=== PATIENT | male | born 1990 | race Two or more races ===

== ENCOUNTER 2016-09-26 20:12 | Emergency (ER) | payer SELFPAY ==
[2016-09-26 20:20] VITALS: BP 138/100; PULSE 95; TEMP 98.3; BMI 25.0
[2016-09-26] MEDS ORDERED: DIPHTH,PERTUSS(ACELL),TET 0.5 ML DISP.SYRIN IM ONE (21:19)
--- NOTE | 2016-09-26 21:24 | PDOC ---
History of Present Illness - General Chief Complaint: Injury Stated Complaint: HEAD LACERATION Time Seen by Provider: 09/26/16 20:56 History Source: Patient Exam Limitations: No Limitations - History of Present Illness Initial Comments: 09/26/16 21:19 26 yr male with lac to scalp after a piece of wall tile fell off wall and hit his head approxiamtely 3ft above his head. no LOC. no dizzyness or vomiting. Occurred: reports: just prior to arrival Severity: reports: mild Pain Location: reports: head Method of Injury: Yes: direct blow Loss of Consciousness: no loss of consciousness Associated Symptoms (Fall): denies symptoms Past History - Past Medical History Allergies/Adverse Reactions: Allergies Allergy/AdvReac Type Severity Reaction Status Date / Time No Known Allergies Allergy Verified 09/26/16 20:17 Home Medications: Ambulatory Orders NK [No Known Home Medication] 09/26/16 Other medical history: denies - Immunization History Immunization Up to Date: Yes - Psycho/Social/Smoking Cessation Hx Suicidal Ideation: No Smoking History: Never smoked Number of Cigarettes Smoked Daily: 20 Information on smoking cessation initiated: No Hx Alcohol Use: No Drug/Substance Use Hx: No Substance Use Type: None *Physical Exam - Vital Signs Last Vital Signs Temp Pulse Resp BP Pulse Ox 98.3 F 95 H 18 138/100 99 09/26/16 20:17 09/26/16 20:17 09/26/16 20:17 09/26/16 20:17 09/26/16 20:17 - Physical Exam General Appearance: Yes: Nourished, Appropriately Dressed HEENT: positive: EOMI, NATASHA Neck: positive: Supple. negative: Tender Respiratory/Chest: positive: Lungs Clear, Normal Breath Sounds Cardiovascular: positive: Regular Rhythm, Regular Rate Musculoskeletal: positive: Normal Inspection Extremity: positive: Normal Capillary Refill, Normal Inspection, Normal Range of Motion Integumentary: positive: Normal Color, Dry, Warm, Other (right side scalp parietal with 0.5cm superficial lac, no active bleeding ) Neurologic: positive: Fully Oriented, Alert, Normal Mood/Affect, Normal Response , Motor Strength 5/5 Procedures - Laceration/Wound Repair Right Head Wound Length: to 2.5 cm Wound Explored: clean Wound's Depth, Shape: superficial Irrigated w/ Saline: Yes Betadine Prep: Yes Wound Repaired With: Dermabond Medical Decision Making - Medical Decision Making 09/26/16 21:22 cc: scalp laceration to the top of head no loc no bleeding now will update tetanus wound cleaned with betadine and dermabond glue placed dc inst given to the pt who understands the follow up plan *DC/Admit/Observation/Transfer Diagnosis at time of Disposition: Laceration of scalp Qualifiers: Encounter type: initial encounter Qualified Code(s): S01.01XA - Laceration without foreign body of scalp, initial encounter - Discharge Dispostion Disposition: HOME Condition at time of disposition: Good - Patient Instructions Printed Discharge Instructions: DI for Closed Head Injury Additional Instructions: take tylenol as needed at home 650mg every 4-6hrs for headache or pain avoid any alcohol for the next 48hrs do not get the wound wet for 24hrs then you can briefly get wet in the shower any severe headache, vomiting or other concerns return to the ER
== END 2016-09-26 21:28 | disposition home or self-care (01) ==
LOC: JERFT 20:12
PROC: 3E0234Z Introduction of Serum, Toxoid and Vaccine into Muscle, Percutaneous Approach (ICD-10-PCS; principal; 2016-09-26)
PROC: 0HQ0XZZ Repair Scalp Skin, External Approach (ICD-10-PCS; 2016-09-26)
DX: S01.01XA Laceration without foreign body of scalp, initial encounter (principal); W20.1XXA Struck by object due to collapse of building, initial encounter; Y93.89 Activity, other specified; Y92.018 Other place in single-family (private) house as the place of occurrence of the external cause
CPT/HCPCS: 90715; 99281-25